=== PATIENT | male | born 1990 | race Two or more races ===

== ENCOUNTER 2019-01-14 23:57 | Emergency (ER) | payer OTHER ==
[~2019-01-14] VITALS: Ht 172.7 cm; Wt 72.6 kg
[2019-01-15 00:03] VITALS: BP 132/86
[2019-01-15] MEDS ORDERED: ONDANSETRON 4 MG TAB.RAPDIS ONE (00:12)
[2019-01-15] MEDS: ONDANSETRON 4 MG TAB.RAPDIS SL ONE (00:52)
== END 2019-01-15 01:05 ==
LOC: ER 01-15 00:02
DX: F19.10 Other psychoactive substance abuse, uncomplicated (principal); R11.0 Nausea
CPT/HCPCS: 99283; Q0162